=== PATIENT | female | born 1980 | race Two or more races ===

== ENCOUNTER 2019-05-19 12:07 | Observation (INO) | payer MEDICAID ==
[~2019-05-19] VITALS: Ht 167.6 cm; Wt 104.3 kg
[2019-05-19] MEDS ORDERED: PREN27TA7 PO (13:41)
[2019-05-19] MEDS ORDERED: LACTATED RINGER'S 1,000 ML IV ONE (14:15)
== END 2019-05-19 16:14 | disposition home or self-care (01) | DRG 566 ==
LOC: ER 12:07 → LDRP 12:40
PROVIDERS: ADMIT Specialist; ATTEND Specialist
DX: O62.9 Abnormality of forces of labor, unspecified (principal); Z3A.23 23 weeks gestation of pregnancy
CPT/HCPCS: 59025; 76815; 81002; G0378; 96361

== ENCOUNTER 2019-06-12 19:45 | Observation (INO) | payer MEDICAID ==
[~2019-06-12 19:45] MED LIST: PREN27TA7 PO
== END 2019-06-12 20:58 | disposition home or self-care (01) | DRG 861 ==
LOC: LDRP 19:45
PROVIDERS: ADMIT Specialist; ATTEND Specialist
DX: Z34.82 Encounter for supervision of other normal pregnancy, second trimester (principal); Z3A.26 26 weeks gestation of pregnancy
CPT/HCPCS: 59025; 76818; G0378

== ENCOUNTER 2019-06-14 11:45 | Observation (INO) | payer MEDICAID ==
[2019-06-14] MEDS ORDERED: NIF10C PO (12:08)
== END 2019-06-14 12:18 | disposition home or self-care (01) | DRG 563 ==
LOC: LDRP 11:45
PROVIDERS: ADMIT Obstetrics & Gynecology; ATTEND Obstetrics & Gynecology
DX: O60.00 Preterm labor without delivery, unspecified trimester (principal); Z3A.00 Weeks of gestation of pregnancy not specified
CPT/HCPCS: 59025; 81002; G0378

== ENCOUNTER 2019-06-25 09:08 | Observation (INO) | payer MEDICAID ==
[~2019-06-25] VITALS: Ht 167.6 cm; Wt 103.9 kg
[~2019-06-25 09:08] MED LIST changes: +NIF10C PO
== END 2019-06-25 10:10 | disposition home or self-care (01) | DRG 563 ==
LOC: LDRP 09:08
PROVIDERS: ADMIT Specialist; ATTEND Specialist
DX: O60.02 Preterm labor without delivery, second trimester (principal); Z3A.28 28 weeks gestation of pregnancy
CPT/HCPCS: 59025; 81002; G0378

== ENCOUNTER 2019-07-10 17:06 | Observation (INO) | payer MEDICAID ==
[~2019-07-10] VITALS: Ht 167.6 cm; Wt 107.0 kg
[2019-07-10] MEDS ORDERED: BETAMETHASONE ACET (6MG/ML) 5ML VIAL IM ONE (17:30)
== END 2019-07-10 17:58 | disposition home or self-care (01) | DRG 563 ==
LOC: LDRP 17:06
PROVIDERS: ADMIT Specialist; ATTEND Specialist
DX: O60.03 Preterm labor without delivery, third trimester (principal); Z3A.30 30 weeks gestation of pregnancy
CPT/HCPCS: 81002; 96372; G0378; J0702

== ENCOUNTER 2019-07-11 16:53 | Observation (INO) | payer MEDICAID ==
[~2019-07-11] VITALS: Ht 167.6 cm; Wt 103.4 kg
[2019-07-11] MEDS ORDERED: BETAMETHASONE ACET (6MG/ML) 5ML VIAL IM ONE (17:15)
== END 2019-07-11 17:55 | disposition home or self-care (01) | DRG 563 ==
LOC: LDRP 16:53
PROVIDERS: ADMIT Obstetrics & Gynecology; ATTEND Obstetrics & Gynecology
DX: O60.03 Preterm labor without delivery, third trimester (principal); Z3A.31 31 weeks gestation of pregnancy
CPT/HCPCS: 59025; 81002; 96372; G0378

== ENCOUNTER 2019-07-12 15:38 | Observation (INO) | payer MEDICAID ==
[2019-07-12] MEDS: TERBUTALINE SULFATE 1 MG/ML 1ML VIAL SC SCH ×2 (16:32→17:04)
== END 2019-07-12 17:35 | disposition home or self-care (01) | DRG 563 ==
LOC: LDRP 15:38
PROVIDERS: ADMIT Obstetrics & Gynecology; ATTEND Obstetrics & Gynecology
DX: O60.03 Preterm labor without delivery, third trimester (principal); O36.8130 Decreased fetal movements, third trimester, not applicable or unspecified; Z3A.31 31 weeks gestation of pregnancy
CPT/HCPCS: 59025; 81002; 96372; G0378; J3105

== ENCOUNTER 2019-08-09 21:34 | Observation (INO) | payer MEDICAID ==
[2019-08-09] MEDS ORDERED: LACTATED RINGER'S 1,000 ML IV ONE (21:55)
[2019-08-09] MEDS ORDERED: TERBUTALINE SULFATE 1 MG/ML 1ML VIAL SC ONE (22:00)
[2019-08-09] MEDS: TERBUTALINE SULFATE 1 MG/ML 1ML VIAL SC SCH ×3 (22:39→22:44)
[2019-08-09 23:44] LABS: Urine Bacteria FEW /hpf (None Seen); Urine Blood Negative /uL (Negative); Urine Mucus FEW (None Seen); Urine Specific Gravity 1.017 (1.001-1.035); Urine WBC 2 /hpf (0 - 5)
[2019-08-09 23:53] LABS: Amphetamine Screen, Urine NEGATIVE (NEGATIVE); Barbiturate Scree,Urine NEGATIVE (NEGATIVE); Benzodiazephine Screen, Urine NEGATIVE (NEGATIVE); Cannabinoid Screen, Urine NEGATIVE (NEGATIVE); Cocaine Screen, Urine NEGATIVE (NEGATIVE); Opiate Scree,Urine NEGATIVE (NEGATIVE); Phencyclidine Screen, Urine NEGATIVE (NEGATIVE)
[2019-08-10 00:02] LABS: Alcohol, Urine < 3.0 mg/dL (0-10)
[2019-08-10] MEDS ORDERED: NIFEdipine 10 MG CAP PO ONE (01:30)
[2019-08-11] MEDS ORDERED: HYDR250I6 IM (13:52)
== END 2019-08-10 03:30 | disposition home or self-care (01) | DRG 566 ==
LOC: LDRP 21:34
PROVIDERS: ADMIT Specialist; ATTEND Specialist
DX: O62.9 Abnormality of forces of labor, unspecified (principal); Z3A.33 33 weeks gestation of pregnancy
CPT/HCPCS: 59025; 76818; 80307; 81001; 81002; 96372; G0378; J3105; 96365; 96366

== ENCOUNTER 2019-08-11 13:25 | Observation (INO) | payer MEDICAID ==
[2019-08-11] MEDS ORDERED: HYDR250I6 IM (13:52)
== END 2019-08-11 15:15 | disposition home or self-care (01) | DRG 563 ==
LOC: LDRP 13:25
PROVIDERS: ADMIT Specialist; ATTEND Specialist
DX: O60.03 Preterm labor without delivery, third trimester (principal); O26.893 Other specified pregnancy related conditions, third trimester; N89.8 Other specified noninflammatory disorders of vagina; O62.9 Abnormality of forces of labor, unspecified; Z3A.34 34 weeks gestation of pregnancy
CPT/HCPCS: 59025; 81002; G0378

== ENCOUNTER 2019-08-29 12:20 | Observation (INO) | payer MEDICAID ==
[~2019-08-29 12:20] MED LIST changes: +HYDR250I6 IM
== END 2019-08-29 14:24 | disposition home or self-care (01) | DRG 566 ==
LOC: LDRP 12:20
PROVIDERS: ADMIT Specialist; ATTEND Specialist
DX: O62.9 Abnormality of forces of labor, unspecified (principal); O99.89 Other specified diseases and conditions complicating pregnancy, childbirth and the puerperium; M54.9 Dorsalgia, unspecified; O12.03 Gestational edema, third trimester; Z3A.36 36 weeks gestation of pregnancy
CPT/HCPCS: 59025; 81002; G0378

== ENCOUNTER 2019-09-09 18:10 | Observation (INO) | payer MEDICAID ==
[~2019-09-09] VITALS: Ht 167.6 cm; Wt 104.3 kg
[~2019-09-09 18:10] MED LIST changes: -HYDR250I6 IM; -NIF10C PO
== END 2019-09-09 20:05 | disposition home or self-care (01) | DRG 566 ==
LOC: LDRP 18:10
PROVIDERS: ADMIT Specialist; ATTEND Specialist
DX: O42.92 Full-term premature rupture of membranes, unspecified as to length of time between rupture and onset of labor (principal); O62.9 Abnormality of forces of labor, unspecified; O99.89 Other specified diseases and conditions complicating pregnancy, childbirth and the puerperium; M54.9 Dorsalgia, unspecified; R10.30 Lower abdominal pain, unspecified; Z3A.38 38 weeks gestation of pregnancy
CPT/HCPCS: 59025; 76815; 81002; 84112; G0378; Q0114

== ENCOUNTER 2019-09-17 09:00 | Observation (INO) | payer MEDICAID ==
[~2019-09-17] VITALS: Ht 167.6 cm; Wt 108.9 kg
== END 2019-09-17 10:32 | disposition home or self-care (01) | DRG 566 ==
LOC: LDRP 09:00
PROVIDERS: ADMIT Specialist; ATTEND Specialist
DX: O62.9 Abnormality of forces of labor, unspecified (principal); Z91.040 Latex allergy status; Z3A.39 39 weeks gestation of pregnancy; Z91.81 History of falling
CPT/HCPCS: 59025; 81002; G0378

== ENCOUNTER 2019-09-17 18:57 | Inpatient (IN) | payer MEDICAID ==
[~2019-09-17] VITALS: Ht 167.6 cm; Wt 108.9 kg
[2019-09-17] MEDS ORDERED: LACTATED RINGER'S 1,000 ML IV SCH (19:23)
[2019-09-17] MEDS ORDERED: LACT. RINGERS/OXYTOCIN 20UNITS 1,000 ML IV SCH ×2 (19:23→23:33)
[2019-09-17] MEDS ORDERED: METHYLERGONOVINE MALEATE 0.2 MG/ML AMP IM PRN (19:30)
[2019-09-17] MEDS ORDERED: DERMOPLAST 60ML BOTTLE TOP PRN (19:30)
[2019-09-17] MEDS ORDERED: LIDOCAINE 2%HCL (LOCAL ANESTH.) INJ 20ML MDV ID ONE (19:30)
[2019-09-17] MEDS ORDERED: PHISODERM TOP SOLN 240ML BTL TOP PRN (19:30)
[2019-09-17] MEDS ORDERED: WITCH HAZEL-GLYCERIN PAD TOP PRN (19:30)
[2019-09-17] MEDS ORDERED: CARBOPROST TROMETHAMINE 250 MCG/1ML VIAL IM PRN (19:30)
[2019-09-17] MEDS ORDERED: miSOPROStol 50 MCG per PRE-CUT 1/2 TAB PO PRN (20:00)
[2019-09-17 20:10] LABS: Basophils # (auto) 0 10 ^3/uL (0-0.2); Basophils % (auto) 0.2 % (0.0-2.0); Eosinophils # (auto) 0 10 ^3/uL (0-0.8); Hemoglobin 10.1 g/dL (12.2-16.2); Lymphocytes # (auto) 1.3 10 ^3/uL (0.4-5.4); Lymphocytes % (auto) 15.8 % (10.0-50.0); Monocytes # (auto) 0.5 10 ^3/uL (0-1.3); Nucleated Red Blood Cells % 0.1 %
[2019-09-17 20:12] LABS: Eosinophils % (auto) 0.4 % (0.0-7.0); Hematocrit 31.5 % (36.0-46.0); Mean Corpuscular Hemoglobin 24.3 pg (28.0-32.0); Mean Corpuscular Hgb Conc. 31.9 g/dL (32.0-36.0); Mean Corpuscular Volume 76.2 fL (80.0-100.0); Monocytes % (auto) 6.2 % (0.0-12.0); Neutrophils # (auto) 6.6 10 ^3/uL (1.6-8.6); Neutrophils % (auto) 77.4 % (37.0-80.0); Platelet Count (auto) 239 10^3/uL (140-450); Red Blood Cells 4.14 10^6/uL (4.0-5.20); Red Cell Distribution Width 14.8 % (11.8-14.3); White Blood Cell 8.5 10^3/uL (4.4-10.8)
[2019-09-17 20:24] LABS: INR 0.91 (0.9-1.15); Partial Thromboplastin Time 24.2 sec (23.64-32.05)
[2019-09-17 20:28] LABS: Albumin 2.4 g/dL (3.4-5.0); Calcium 8.6 mg/dL (8.5-10.1); Potassium 3.6 mmol/L (3.5-5.1); Uric Acid 5.6 mg/dL (2.6-6.0)
[2019-09-17 20:31] LABS: BUN/Creatinine Ratio 13.7; Bilirubin, Total 0.2 mg/dL (0.2-1.0); Total Protein 6.7 g/dL (6.4-8.2)
[2019-09-17 21:54] LABS: Alcohol, Urine < 3.0 mg/dL (0-10); Amphetamine Screen, Urine NEGATIVE (NEGATIVE); Barbiturate Scree,Urine NEGATIVE (NEGATIVE); Benzodiazephine Screen, Urine NEGATIVE (NEGATIVE); Cannabinoid Screen, Urine NEGATIVE (NEGATIVE); Cocaine Screen, Urine NEGATIVE (NEGATIVE); Opiate Scree,Urine NEGATIVE (NEGATIVE); Phencyclidine Screen, Urine NEGATIVE (NEGATIVE)
[2019-09-17 23:59] LABS: Urine Bacteria FEW /hpf (None Seen); Urine Blood Negative /uL (Negative); Urine Mucus FEW (None Seen); Urine Specific Gravity 1.021 (1.001-1.035)
[2019-09-18 00:11] LABS: Urine WBC 5 /hpf (0 - 5)
[2019-09-18] MEDS ORDERED: ACETAMINOPHEN 325 MG TAB PO PRN (01:30)
[2019-09-18] MEDS ORDERED: ONDANSETRON HCL 4 MG/2 ML VIAL IV PRN (01:30)
[2019-09-18] MEDS: IBUPROFEN 600 MG TAB PO PRN ×4 (02:02→22:12)
[2019-09-18 03:43] VITALS: BP 108/56
[2019-09-18 07:30] VITALS: BP 112/67
[2019-09-18 11:21] VITALS: BP 112/70
[2019-09-18 14:45] VITALS: BP 111/68
[2019-09-18 19:00] VITALS: BP 122/90
[2019-09-18 23:00] VITALS: BP 106/62
[2019-09-19 03:00] VITALS: BP 114/75
[2019-09-19 06:06] LABS: RPR Non Reactive (Non Reactive)
[2019-09-19 07:00] VITALS: BP 114/76
[2019-09-19 11:00] VITALS: BP 122/77
[2019-09-19 11:06] VITALS: BP 122/77
== END 2019-09-19 11:06 | disposition home or self-care (01) | DRG 560 ==
LOC: LDRP 18:57
PROVIDERS: ADMIT Specialist; ATTEND Specialist
PROC: 10E0XZZ Delivery of Products of Conception, External Approach (ICD-10-PCS; principal; 2019-09-18)
PROC: 10907ZC Drainage of Amniotic Fluid, Therapeutic from Products of Conception, Via Natural or Artificial Opening (ICD-10-PCS; 2019-09-18)
DX: O80 Encounter for full-term uncomplicated delivery (principal); Z3A.39 39 weeks gestation of pregnancy; Z37.0 Single live birth
CPT/HCPCS: 36415; 59025; 59409; 80053; 80307; 81001; 84112; 84550; 85025; 85610; 85730; 86592; 86850; 86900; 86901; 96360; 96361; G0378; J2590